=== PATIENT | male | born 1985 ===

== ENCOUNTER → 2017-08-12 13:03 | Outpatient (CLI) | payer OTHER ==
[~2017-08-12] VITALS: Ht 152.4 cm; Wt 61.2 kg
[~2017-08-12 13:03] MED LIST: NAPR500T14
== END | disposition home or self-care (01) ==
LOC: PPHC 13:03
DX: A54.01 Gonococcal cystitis and urethritis, unspecified (principal); N34.1 Nonspecific urethritis